=== PATIENT | male | born 1985 | race Hispanic/Latino ===

== ENCOUNTER 2022-03-03 11:10 | Emergency (ER) | payer SELFPAY ==
--- NOTE | 2022-03-03 14:00 | ER ---
Nurse's Notes [facility] Name: Tommy Stoner Age: 36 yrs Sex: Male : 1985 Arrival Date: 03/03/2022 Time: 11:15 Bed 26 Private MD: Diagnosis: SARS-associated coronavirus as the cause of diseases classified elsewhere Presentation: 03/03 12:05 Chief complaint: Patient states: GIBBS, sore throat, cough, fatigue, and fever that began aa5 3 days. Coronavirus screen: cough unrelated to allergies, headache, sore throat. Ebola Screen: Patient denies travel to an Ebola-affected area in the 21 days before illness onset. Initial Sepsis Screen: Does the patient meet any 2 criteria? No. Patient's initial sepsis screen is negative. Does the patient have a suspected source of infection? Yes:. Risk Assessment: Do you want to hurt yourself or someone else? Patient reports no desire to harm self or others. Onset of symptoms was February 2022. 12:05 Acuity: JESSIE 4 aa5 12:05 Method Of Arrival: Ambulatory aa5 Historical: - Allergies: 12:06 No Known Allergies; aa5 - PMHx: 12:06 None; aa5 - PSHx: 12:06 None; aa5 - Immunization history:: Client reports having NOT received the Covid vaccine. - Social history:: Smoking status: Patient denies any tobacco usage or history of. Screenin:19 Abuse screen: Denies threats or abuse. Nutritional screening: No deficits noted. bm7 Tuberculosis screening: No symptoms or risk factors identified. Fall Risk None identified. Assessment: 14:19 Reassessment: No changes from previously documented assessment. bm7 Vital Signs: 12:05 BP 138 / 80; Pulse 64; Resp 18 S; Temp 98.1(TE); Pulse Ox 98% on R/A; Weight 113.4 kg aa5 (R); Height 5 ft. 6 in. (167.64 cm) (R); 12:05 Body Mass Index 40.35 (113.40 kg, 167.64 cm) aa5 ED Course: 11:15 Patient arrived in ED. rg4 11:23 Yuliana Venegas FNP-C [facility]. kb 11:23 Severo Jimenez MD is Attending Physician. kb 12:05 Arm band placed on. aa5 12:06 Triage completed. aa5 12:11 COVID swab sent to lab. Flu and/or RSV swab sent to lab. Strep swab sent to lab. aa5 14:19 Patient has correct armband on for positive identification. bm7 14:19 No provider procedures requiring assistance completed. Patient did not have IV access bm7 during this emergency room visit. Administered Medications: No medications were administered Medication: 14:19 VIS not applicable for this client. bm7 Outcome: 14:00 Discharge ordered by . larisa 14:19 Discharged to home ambulatory. bm7 14:19 Condition: good 14:19 Discharge instructions given to patient, Instructed on discharge instructions, follow up and referral plans. Demonstrated understanding of instructions, follow-up care. 14:20 Patient left the ED. bm7 Signatures: Yuliana Venegas, WAITRESS-C WAITRESS-Marielos Dennis, RN RN aa5 Aav Harper rg4 Shira Ramos, RN RN bm7
--- NOTE | 2022-03-03 14:00 | EDPHYS ---
Physician Documentation [facility] Name: Tommy Stoner Age: 36 yrs Sex: Male : 1985 Arrival Date: 03/03/2022 Time: 11:15 Bed 26 Private MD: ED Physician Severo Jimenez HPI: 03/03 13:20 This 36 yrs old Male presents to ER via Ambulatory with complaints of Flu kb Symptoms. 13:20 The patient or guardian reports cough, that is intermittent, described as mild, flu kb symptoms, myalgias. Onset: The symptoms/episode began/occurred 3 day(s) ago. Severity of symptoms: At their worst the symptoms were moderate, in the emergency department the symptoms are unchanged. Severity of symptoms: At their worst the symptoms were. Modifying factors: The symptoms are alleviated by nothing, the symptoms are aggravated by nothing. Associated signs and symptoms: Pertinent positives: fever, sore throat, Pertinent negatives: chest pain, diarrhea, ear ache, nausea, rhinorrhea, vomiting. The patient has not experienced similar symptoms in the past. The patient has not recently seen a physician. Pt reports cough, headache, malaise, bodyaches and sore throat for 3 days. Had fever on day 1, but not since then. Historical: - Allergies: 12:06 No Known Allergies; aa5 - PMHx: 12:06 None; aa5 - PSHx: 12:06 None; aa5 - Immunization history:: Client reports having NOT received the Covid vaccine. - Social history:: Smoking status: Patient denies any tobacco usage or history of. ROS: 13:20 Abdomen/GI: Negative for abdominal pain, nausea, vomiting, diarrhea, and constipation. kb 13:20 Constitutional: Positive for fever, malaise. 13:20 ENT: Positive for sore throat. 13:20 Respiratory: Positive for cough. 13:20 Neuro: Positive for headache. 13:20 All other systems are negative. Exam: 13:20 Constitutional: This is a well developed, well nourished patient who is awake, alert, kb and in no acute distress. Head/Face: Normocephalic, atraumatic. ENT: Moist Mucous membranes Cardiovascular: Regular rate and rhythm with a normal S1 and S2. No gallops, murmurs, or rubs. No pulse deficits. Respiratory: Respirations even and unlabored. No increased work of breathing. Talking in full sentences Abdomen/GI: Soft, non-tender. No distention Skin: Warm, dry with normal turgor. Normal color. MS/ Extremity: Pulses equal, no cyanosis. Neurovascular intact. Full, normal range of motion. Neuro: Awake and alert, GCS 15, oriented to person, place, time, and situation. Moves all extremities. Normal gait. Psych: Awake, alert, with orientation to person, place and time. Behavior, mood, and affect are within normal limits. Vital Signs: 12:05 BP 138 / 80; Pulse 64; Resp 18 S; Temp 98.1(TE); Pulse Ox 98% on R/A; Weight 113.4 kg aa5 (R); Height 5 ft. 6 in. (167.64 cm) (R); 12:05 Body Mass Index 40.35 (113.40 kg, 167.64 cm) aa5 MDM: 11:34 Patient medically screened. kb 13:20 Data reviewed: vital signs, nurses notes. Data interpreted: Pulse oximetry: on room air kb is 98 %. Interpretation: normal. Counseling: I had a detailed discussion with the patient and/or guardian regarding: the historical points, exam findings, and any diagnostic results supporting the discharge/admit diagnosis, lab results, the need for outpatient follow up, a family practitioner, to return to the emergency department if symptoms worsen or persist or if there are any questions or concerns that arise at home. 03/03 11:34 Order name: Flu; Complete Time: 13:48 kb 03/03 11:34 Order name: Strep; Complete Time: 14:00 kb 03/03 11:34 Order name: COVID-19 SARS RT PCR (Document "Date of Onset" if Symptomatic); Complete kb Time: 13:12 03/03 13:58 Order name: Throat Culture EDMS Administered Medications: No medications were administered Disposition Summary: 03/03/22 14:00 Discharge Ordered Location: Home kb Condition: Stable kb Diagnosis - SARS-associated coronavirus as the cause of diseases classified elsewhere kb Followup: kb - With: Emergency Department - When: As needed - Reason: Worsening of condition Followup: kb - With: Private Physician - When: 2 - 3 days - Reason: Recheck today's complaints, Continuance of care, Re-evaluation by your physician Discharge Instructions: - Discharge Summary Sheet kb - COVID-19 kb - Viral Illness, Adult kb Forms: - Medication Reconciliation Form kb - Thank You Letter kb - Antibiotic Education kb - Prescription Opioid Use kb Signatures: Dispatcher [employer] Yuliana Navarro, DOCUMENT REVIEW SPECIALIST-C DOUGLAS-Marielos Dennis, RN RN aa5
[2022-03-03 14:47] VITALS: BP 138/80; TEMP 98.1; O2SAT 98
== END 2022-03-03 14:20 | disposition home or self-care (01) ==
LOC: ER 11:10
DX: U07.1 COVID-19 (principal)
CPT/HCPCS: 87070; 87081; 87804; 99283; U0003